=== PATIENT | male | born 1990 | race Caucasian/White ===

== ENCOUNTER 2019-08-08 21:08 | Emergency (ER) | payer BC, OTHER ==
[~2019-08-08] VITALS: Ht 177.8 cm; Wt 69.5 kg
[2019-08-08 21:24] VITALS: BP 134/76
[2019-08-08] MEDS ORDERED: ONDANSETRON ODT 4 MG ONE (21:45)
[2019-08-08] MEDS ORDERED: MAALOX/HYOSCYAMINE/LIDOCAINE 45 ML BTL ONE (21:45)
[2019-08-08] MEDS ORDERED: FAMOTIDINE 20 MG TABLET ONE (21:45)
--- NOTE | 2019-08-08 21:51 | NUR ---
PT MEDICATED PER ORDERS. TO XR VIA [facility]. Addendum: 08/08/19 at 2217 by MARI PT STATES HE HAD A COUPLE DRINKS EARLIER TODAY AND WAS EXPERIENCING SOME HEARTBURN AFTER A MEAL.
[2019-08-08] MEDS ORDERED: MAALOX/HYOSCYAMINE/LIDOCAINE 45 ML BTL PO ONE (22:00)
[2019-08-08] MEDS ORDERED: ONDANSETRON ODT 4 MG PO ONE (22:00)
[2019-08-08] MEDS ORDERED: FAMOTIDINE 20 MG TABLET PO ONE (22:00)
[2019-08-08 22:07] LABS: BASOPHILS # (AUTO) 0.02 x10^3/uL (0-0.1); BASOPHILS % (AUTO) 0 % (0-1); EOSINOPHILS # (AUTO) 0.26 x10^3/uL (0-0.4); EOSINOPHILS % (AUTO) 5 % (1-7); LYMPHOCYTES # (AUTO) 2.23 x10^3/uL (1-3.4); LYMPHOCYTES % (AUTO) 44 % (22-44); MD NO; MEAN CORPUSCULAR HEMOGLOBIN 29.6 pg (27.5-34.5); MEAN CORPUSCULAR HGB CONC 33.5 g/dL (33.2-36.2); MEAN CORPUSCULAR VOLUME 88.3 fL (81-97); MEAN PLATELET VOLUME 7.4 fL (7.4-10.4); MONOCYTES # (AUTO) 0.32 x10^3/uL (0.2-0.8); MONOCYTES % (AUTO) 6 % (2-9); NEUTROPHILS % (AUTO) 44 % (42-75); PLATELET COUNT 303 x10^3/uL (130-400); RED BLOOD COUNT 5.16 x10^6/uL (4.38-5.82); RED CELL DISTRIBUTION WIDTH 13.5 % (9.4-14.8)
--- NOTE | 2019-08-08 22:17 | NUR ---
ERP AT FOR RECHECK.
[2019-08-08 22:19] LABS: ALANINE AMINOTRANSFERASE 33 U/L (12-78); ANION GAP 5 mmol/L (5-15); CALCIUM 9.3 mg/dL (8.5-10.1); CHLORIDE 110 mmol/L (98-107); CREATININE 1.22 mg/dL (0.7-1.3)
[2019-08-08 22:21] LABS: ALKALINE PHOSPHATASE 67 U/L (45-117); BILIRUBIN,TOTAL 0.3 mg/dL (0.2-1.0); TOTAL PROTEIN 8.1 g/dL (6.4-8.2)
--- NOTE | 2019-08-08 22:59 | NUR ---
CINDY RN: Patient/Caregiver given discharge instructions and they have confirmed that they understand the instructions. Patient ambulatory with steady gait.
== END 2019-08-08 23:01 | disposition home or self-care (01) ==
LOC: ED 21:47
DX: K29.01 Acute gastritis with bleeding (principal); R10.13 Epigastric pain; R05 Cough; R11.2 Nausea with vomiting, unspecified; F10.10 Alcohol abuse, uncomplicated; Y90.0 Blood alcohol level of less than 20 mg/100 ml
CPT/HCPCS: 36415; 71046; 80053; 80307; 83690; 85025; 99284; Q0162